=== PATIENT | male | born 1985 | race Hispanic/Latino ===

== ENCOUNTER 2024-09-30 12:56 | Emergency (ER) | payer OTHER ==
[~2024-09-30] VITALS: Ht 182.9 cm; Wt 99.8 kg
[2024-09-30 13:21] VITALS: PULSE 77; RESP 15; TEMP 98.5
[2024-09-30 13:50] LABS: BASOPHILS # (AUTO) 0.1 (0.0-0.1); BASOPHILS % 0.8 % (0.0-1.0); EOSINOPHILS # (AUTO) 0.1 (0.0-0.4); EOSINOPHILS % 1.6 % (0.0-6.0); HEMATOCRIT 43.4 % (38.2-49.6); HEMOGLOBIN 14.6 g/dL (14.0-18.0); LYMPHOCYTES # (AUTO) 1.9 (1.0-3.2); LYMPHOCYTES % 29.2 % (18.0-39.1); MEAN CORPUSCULAR HEMOGLOBIN 31.2 pg (28-32); MEAN CORPUSCULAR HGB CONC 33.6 g/dL (31-35); MEAN CORPUSCULAR VOLUME 92.7 fL (81-99); MONOCYTES # (AUTO) 0.5 (0.2-0.8); MONOCYTES % 7.9 % (4.4-11.3); NEUTROPHILS # (AUTO) 3.8 (2.1-6.9); NEUTROPHILS % 60.3 % (38.7-80.0); PLATELET COUNT 247 x10e3/uL (140-360); RED BLOOD COUNT 4.68 x10e6/uL (4.3-5.7); RED CELL DISTRIBUTION WIDTH 12.2 % (11.7-14.4); WHITE BLOOD COUNT 6.33 x10e3/uL (4.8-10.8)
[2024-09-30 14:09] LABS: ALBUMIN 4.3 g/dL (3.5-5.0); BILIRUBIN,TOTAL 1.2 mg/dL (0.2-1.2); CALCIUM 9.3 mg/dL (8.4-10.2); CREATININE, SERUM 1.08 mg/dL (0.72-1.25); TOTAL PROTEIN 8.5 g/dL (6.5-8.1)
[2024-09-30 15:07] VITALS: BP 160/61; PULSE 75; RESP 16; TEMP 98.2; O2SAT 98
== END 2024-09-30 15:09 | disposition home or self-care (01) ==
LOC: ER 13:15
DX: R07.89 Other chest pain (principal); R94.31 Abnormal electrocardiogram [ECG] [EKG]
CPT/HCPCS: 36415; 71045; 80053; 84484; 85025; 93005; 99283

== ENCOUNTER 2024-12-16 00:39 | Emergency (ER) | payer OTHER ==
[~2024-12-16] VITALS: Ht 182.9 cm; Wt 133.4 kg
[2024-12-16 00:43] VITALS: PULSE 72; RESP 20; TEMP 98.3; O2SAT 100
[2024-12-16] MEDS ORDERED: CYCLOBENZAPRINE5 MG PO (00:47)
[2024-12-16] MEDS ORDERED: MEDROL4 M2 PO (00:47)
== END 2024-12-16 01:00 | disposition home or self-care (01) ==
LOC: ER 00:47
DX: M54.50 Low back pain, unspecified (principal); X58.XXXA Exposure to other specified factors, initial encounter
CPT/HCPCS: 99282